=== PATIENT | female | born 1985 | race African-American/Black ===

== ENCOUNTER 2016-07-25 21:53 | Inpatient (IN) | payer OTHER ==
[~2016-07-25] VITALS: Ht 162.6 cm; Wt 66.0 kg
[2016-07-25 22:07] VITALS: BP 122/81
[2016-07-25] MEDS ORDERED: PRENTAB9 PO (22:08)
[2016-07-25] MEDS ORDERED: LR 1,000 ML IV SCH (22:40)
[2016-07-25] MEDS ORDERED: OXYTOCIN DRIP 30 UNITS in APPROPRIATE DILUENT 1 EA IV SCH (22:45)
[2016-07-25] MEDS ORDERED: LACTATED RINGER'S 1000 ML IV ONE (22:45)
[2016-07-25 23:10] LABS: MEAN CORPUSCULAR HEMOGLOBIN 29.3 pg (27.0-33.0); MEAN CORPUSCULAR HGB CONC 32.9 g/dl (32.0-36.5); MEAN CORPUSCULAR VOLUME 88.9 fl (80.0-96.0); RED CELL DISTRIBUTION WIDTH 12.7 % (11.5-14.5); WHITE BLOOD COUNT 5.4 K/mm3 (4.0-10.0)
--- NOTE | 2016-07-25 23:25 | HPE ---
DATE OF ADMISSION: 07/25/2016 This lady is 24-year-old 3, para 1, abort 1, last menstrual period (LMP) 10/21/2015, estimated date of confinement (EDC) 07/17/2016 at 41 and 1 week gestation with spontaneous rupture of membranes. No contractions and desires a trial of labor after (TOLAC) PAST HISTORY: 2013 section 40 weeks, male, 7 pounds 6 ounces because of distress. On 2015, spontaneous . Labs show O+, human immunodeficiency virus (HIV) negative, negative RPR, negative rubella immune. Gonorrhea and chlamydia negative. One-hour glucose 83. Group B streptococcus (GBS) negative. Urine 1005, pH 7, 250 blood, protein +1, temperature is 98.0, pulse is 78, respirations 16 and blood pressure 122/81. On examination, no acute distress. She has copious amounts of fluid coming from the vagina, fern positive, Nitrazine positive. Cervix is 80% posterior finger with a -1 station, clear liquor. The patient desires trial of labor after (TOLAC). We discussed the risks and benefits of a trial of labor after (TOLAC) including perforation of the uterus, rupture of the uterus, distress, emergency section, blood transfusion, emergency hysterectomy and reoperation. The patient and except the risks and benefits of a trial of labor after (TOLAC). The rest of the examination is unremarkable. She is normocephalic, atraumatic. Neck full range of motion. Pupils equal and reactive to light. Category one strip with one contraction. Chest is clear bilaterally at the bases. No wheezes or rhonchi. Distal pulses are symmetric. No evidence of deep vein thrombosis (DVT), pulmonary emboli (PE) or superficial phlebitis. We have a gravid abdomen, four quadrant bowel sounds. Incisional site is clean and dry and it is nontender. No rashes, lesions or pruritus, no arthralgia or myalgia. No complaints, cough, wheezes, shortness of breath or dyspnea on exertion. No chest pain. No bleeding. Neuro complete. No incontinency, frequency. No nausea, vomiting, diarrhea or constipation. No diabetic issues. Past history outside of her surgical intervention for section unremarkable. She does not smoke or drink, abuse drugs. She is and there is no domestic violence. In summary, have a post age gestation with spontaneous rupture of membranes. No contractions. Our plan is to IV hydrate, augmented if no contractions after three hours, epidural for pain management and anticipate progress.
[2016-07-26] VITALS (32 sets, daily range): BP systolic 91–149; BP diastolic 52–96
[2016-07-26] MEDS ORDERED: FENTANYL 2MCG/ML ROPIVACAINE 0.2% NACL 250 ML CADD As Ordered ONE (00:38)
[2016-07-26] MEDS ORDERED: NALOXONE INJ 0.4 MG/1 ML VIAL (J2310) IV PRN (01:40)
[2016-07-26] MEDS ORDERED: LACTATED RINGER'S 1000 ML IV PRN (01:40)
[2016-07-26] MEDS ORDERED: diphenhydrAMINE INJ 50MG/ML VIAL (J1200) IV PRN (01:40)
[2016-07-26] MEDS ORDERED: ONDANSETRON 4MG/2ML VIAL (J2405) IV PRN (01:40)
[2016-07-26] MEDS ORDERED: FENTANYL/ROPIVACAINE/NACL CADD 250 ML EPIDURAL SCH (01:40)
[2016-07-26] MEDS ORDERED: EPIDURAL/PCA KEYS XX PRN (01:40)
[2016-07-26] MEDS ORDERED: ePHEDrine SULFATE 25 MG/5 ML(5MG/ML) SYRINGE IV PRN (01:40)
[2016-07-26] MEDS ORDERED: REFRIGERATOR IV KEYS XX PRN (01:40)
[2016-07-26] MEDS ORDERED: EPIDURAL COMMENT XX SCH (01:40)
[2016-07-26 05:00] LABS: CORD GAS ABE A -4.2; CORD GAS O2 SAT A 44.3 %; CORD GAS PCO2 A 49.4 mmHg; CORD GAS PH A 7.285 UNITS; CORD GAS PO2 A 21.2 mmHg; CORD GAS SBC A 19.7 MEQ/L; CORD GAS TCO2 A 24.5 MEQ/L
[2016-07-26 05:01] LABS: CORD GAS HCO3 V 21.6 MEQ/L; CORD GAS O2 SAT V 39.8 %; CORD GAS PCO2 V 45.5 mmHg; CORD GAS PH V 7.295 UNITS; CORD GAS PO2 V 20.2 mmHg
[2016-07-26] MEDS ORDERED: RHOGAM 300 MCG (1500 IU) INJ (J2790) IM SCH (05:30)
[2016-07-26] MEDS ORDERED: IBUPROFEN 800 MG TAB PO PRN (05:30)
[2016-07-26] MEDS ORDERED: DIBUCAINE 1% OINTMENT 30GM TOP PRN (05:30)
[2016-07-26] MEDS ORDERED: MEASLES,MUMPS,RUBELLA VACCINE INJ (MMR-II) (90707) SC SCH (05:30)
[2016-07-26] MEDS ORDERED: ACETAMINOPHEN 500 MG TAB PO PRN (05:30)
[2016-07-26] MEDS ORDERED: MOM 30ML SUSPENSION UDC PO PRN (05:30)
[2016-07-26] MEDS ORDERED: DOCUSATE SODIUM 100 MG CAP PO PRN (05:30)
[2016-07-26] MEDS ORDERED: ANUSOL HC CREAM 30GM TOP PRN (05:30)
[2016-07-26] MEDS ORDERED: METHYLERGONOVINE MALEATE 0.2 MG TAB PO PRN (05:30)
[2016-07-26] MEDS: PRENATAL VITAMIN TAB PO SCH (09:00)
--- NOTE | 2016-07-26 09:47 | DN ---
DATE: 07/26/2016 DELIVERY NOTE: This lady is a 3, para 1, at 41 weeks and 1 day of gestation, admitted with spontaneous rupture of membranes, GBS negative. She had a previous section and requested a trial of labor after (TOLAC). She was augmented with Pitocin, had an epidural in place, rapidly dilated up to full dilatation. She had some late decelerations, some variable decelerations, being fully dilated. The patient was given oxygen and resuscitative measures and the Pitocin was turned off and the patient was unable to feel her perineum because of her epidural. She did push effectively until the baby was at +1 station and then, the baby had a persistent bradycardia of 88 beats per minute. At this time, we discussed with the patient and her regarding a low vacuum assisted delivery and discussed the risks and benefits of doing that. Explained the mechanism of how the vacuum works. We then applied the vacuum to the caput. In the occiput anterior (OA) position, fully dilated, bladder was drained clear. We did one pull at the perineum, removed the vacuum and the patient had a spontaneous vaginal delivery of a live female weighing 2902 grams (6 pounds 6 ounces), score of 9 and 9 at one and five minutes, respectively. Arterial and venous pH was performed. After baby was delivered, there was an extended time and the placenta did not spontaneous deliver and we did a manual removal of the placenta as the patient was completely anesthetized and felt nothing. The placenta was complete. There was visualized membranes and placental tissue, three vessels in the cord. We examined the lower segment and found an indentation into the lower segment not completely [id number], but there was noted a defect in the lower uterine segment. The uterus contracted well down under Pitocin. There was a small vaginal abrasion, which was oversewn in usual fashion on the left side. Again, examining the vagina and the cervix, everything appeared to be intact. The uterus was well contracted under the Pitocin. The patient was a successful vaginal after section (), patient and baby tolerating procedure well.
[2016-07-26] MEDS ORDERED: OXYTOCIN INJ 10 UNITS/ML VIAL (J2590) IV ONE (10:15)
[2016-07-27 06:14] VITALS: BP 118/44
[2016-07-27 07:40] LABS: MEAN CORPUSCULAR HEMOGLOBIN 29.5 pg (27.0-33.0); MEAN CORPUSCULAR HGB CONC 33.5 g/dl (32.0-36.5); RED CELL DISTRIBUTION WIDTH 12.4 % (11.5-14.5); WHITE BLOOD COUNT 7.2 K/mm3 (4.0-10.0)
[2016-07-27] MEDS: PRENATAL VITAMIN TAB PO SCH (08:18)
[2016-07-27] MEDS ORDERED: IBUP-1114 PO (11:05)
[2016-07-27] MEDS ORDERED: ACET50TA PO (11:05)
[2016-07-27] MEDS ORDERED: COLA100C PO (11:05)
== END 2016-07-27 13:50 | disposition home or self-care (01) | DRG 767 ==
LOC: M LDO 21:53 → M LDI 22:06 → M OBS 07-26 13:40
PROVIDERS: ADMIT Obstetrics & Gynecology; ATTEND Obstetrics & Gynecology
PROC: 10D17ZZ Extraction of Products of Conception, Retained, Via Natural or Artificial Opening (ICD-10-PCS; principal; 2016-07-26)
PROC: 10D07Z6 Extraction of Products of Conception, Vacuum, Via Natural or Artificial Opening (ICD-10-PCS; 2016-07-26)
DX: O48.0 Post-term pregnancy (principal); Z37.0 Single live birth; O73.0 Retained placenta without hemorrhage; Z3A.41 41 weeks gestation of pregnancy; O34.211 Maternal care for low transverse scar from previous cesarean delivery; O76 Abnormality in fetal heart rate and rhythm complicating labor and delivery

== ENCOUNTER 2016-10-24 17:31 | Emergency (ER) | payer OTHER ==
[~2016-10-24] VITALS: Ht 162.6 cm; Wt 55.2 kg
[2016-10-24 17:31] VITALS: BP 116/75
[~2016-10-24 17:31] MED LIST: ACET50TA PO; COLA100C5 PO; IBUP-1114 PO; PRENTAB9 PO
[2016-10-24] MEDS ORDERED: NORETHINDRONE PO (17:40)
[2016-10-24] MEDS ORDERED: BACTRIM 160MG/800MG DS TAB PO ONE (18:00)
[2016-10-24] MEDS ORDERED: BACT800T5 PO (18:02)
== END 2016-10-24 18:15 | disposition home or self-care (01) ==
LOC: M ED 18:10
DX: N76.2 Acute vulvitis (principal); Z79.899 Other long term (current) drug therapy

== ENCOUNTER 2016-11-02 16:15 | Emergency (ER) | payer OTHER ==
[~2016-11-02] VITALS: Ht 162.6 cm; Wt 54.7 kg
[~2016-11-02 16:15] MED LIST changes: +BACT800T5 PO; +NORETHINDRONE PO
[2016-11-02 16:16] VITALS: BP 115/72
[2016-11-02] MEDS ORDERED: BENA25TA10 PO (17:42)
[2016-11-02] MEDS ORDERED: ZANT300T PO (17:42)
== END 2016-11-02 17:57 | disposition home or self-care (01) ==
LOC: M ED 16:15
DX: T36.95XA Adverse effect of unspecified systemic antibiotic, initial encounter (principal); X58.XXXA Exposure to other specified factors, initial encounter; Y92.9 Unspecified place or not applicable; Y93.9 Activity, unspecified; Y99.8 Other external cause status; L50.0 Allergic urticaria; Z79.899 Other long term (current) drug therapy; Z88.2 Allergy status to sulfonamides